=== PATIENT | female | born 1960 | race Caucasian/White ===

== ENCOUNTER → 2017-07-05 | Outpatient (CLI) | payer BC | END | disposition home or self-care (01) | LOC: GMAL 11:00 | PROVIDERS: ATTEND Family Medicine | DX: Z00.00 Encounter for general adult medical examination without abnormal findings (principal) ==

== ENCOUNTER → 2018-05-13 | Outpatient (CLI) | payer BC ==
--- NOTE | 2018-05-14 07:12 | MRI ---
EXAM DESCRIPTION: Lumbar Spine w/o Contrast CLINICAL HISTORY: LOW BACK PN COMPARISON: Previous MRI of the lumbar spine November 09, 2008 TECHNIQUE: MRI of the lumbar spine is performed according to our usual protocol with axial and sagittal multi sequence imaging. FINDINGS: Sagittal T2 images reveal decreased signal intensity consistent with desiccation of the intervertebral discs at levels L2-3 through L4-5. Posterior annular bulges are most prominent at L2-3 and L3-4. Increased signal intensity in the posterior annulus at L4-5 is consistent with a small annular tear. No associated extruded disc fragment at this level. Slight degenerative retrolisthesis of L4 on L5 measures 2 mm. Slight degenerative retrolisthesis of L3 on L4 measures 3 mm. No prevertebral mass or aneurysm. Lower cord and conus appear normal. Tip of the conus is behind T12-L1. Sagittal T1 images reveal benign marrow signal characteristics. Disc degeneration with endplate irregularities noted at L3-4. Modic type I changes are seen around the degenerated L3-4 disc. Modic type II changes are seen around the anterior degenerated L2-3 disc. Normal T1 signal intensity and appearance of the lower cord and conus. Sagittal STIR images show mild increased signal intensity in the inferior endplate of L3 and superior endplate of L4 around the degenerated L3-4 disc. No paraspinous fluid collection or cystic lesion. Axial T1 and T2-weighted images were obtained to evaluate the disc levels. T12-L1: No posterior annular bulge or herniation. No spinal stenosis or neural foraminal narrowing. Facets appear normal. Normal appearance of the lower cord and conus. L1-2: No posterior annular bulge or herniation. No spinal stenosis or neural foraminal narrowing. Facet hypertrophic changes are noted bilaterally. L2-3: Moderate diffuse posterior annular bulge without focal herniation. No spinal stenosis or significant neural foraminal narrowing. Marked facet hypertrophy is seen with thickened ligamentum flavum. No significant subarticular recess narrowing. L3-4: Moderate diffuse posterior annular bulge with mild left paracentral accentuation. No spinal stenosis or significant neural foraminal narrowing marked facet hypertrophy is noted with increased fluid in the facet joints. Ligamentum flavum thickening is present. There is moderate narrowing of the subarticular recesses bilaterally. L4-5: Moderate diffuse posterior annular bulge with midline and right paracentral accentuation. Neural foraminal narrowing is mild bilaterally. No significant spinal stenosis at this level. There is marked facet hypertrophy with ligamentum flavum thickening causing severe narrowing of the right more than left subarticular recesses impinging upon the descending L5 nerve roots. L5-S1: Axial images show mild posterior annular bulge with midline accentuation and no spinal stenosis. No significant neural foraminal narrowing. Facet hypertrophic changes are mild without significant compromise of subarticular recesses or lateral recesses. Upper sacrum appears intact. No retroperitoneal mass or aneurysm. Defect in the posterior left iliac body may be related to previous surgery. A similar abnormality was present in this area on the previous exam. Correlate with surgical history. Compared to previous study November 09, 2008, disc degeneration has progressed at L2-3 through L5-S1 levels. Subarticular recess narrowing as worsened at L3-4 and L4-5 levels. IMPRESSION: No acute-appearing disc herniation or significant spinal stenosis. Disc degeneration has progressed since previous study in October 2008. Electronically signed by: Aurelio Carrizales MD 05/14/2018 7:10 AM CDT
== END ==
LOC: MRI 12:43
PROVIDERS: ATTEND Family Medicine
DX: M54.5 Low back pain (principal)

== ENCOUNTER → 2018-05-25 | Outpatient (CLI) | payer BC ==
--- NOTE | 2018-05-26 17:00 | MAM ---
EXAM DESCRIPTION: 3D Screening BILATERAL : Digital Mammography. CLINICAL HISTORY: 57 years Female SCREEN . No complaints. Remote family history of breast cancer. No personal history. Childbirth. Postmenopausal x16 years. Currently on HRT. Lifetime risk of developing breast cancer (Tyrer-Cuzick model)(%): 6.9 COMPARISON: 2-D digital screening bilateral study 07/14/2016.. TECHNIQUE: Bilateral CC and MLO projection full-field images, Digital tomosynthesis mammographic technique. Bilateral digital 2-D full-field MLO images. CAD not utilized. FINDINGS: The breast parenchymal density pattern is: Scattered areas of fibroglandular density. No skin thickening or nipple retraction. Bilateral axillary lymph nodes. Bilateral solitary microcalcifications. No new focal, stellate mass or density, focal asymmetry , and no suspicious microcalcifications bilaterally. Stable mammograms compared to prior study. Taking into account, differences in mammographic technique. IMPRESSION: Benign exam. BIRAD CATEGORY: 2 BENIGN FINDINGS. RECOMMENDATIONS: FOLLOW UP: Routine digital bilateral screening, one year interval from May 2018. Written communication explaining the IMPRESSION and follow-up, will be mailed to the patient and referring health care provider. According to the [employer], yearly mammograms are recommended starting at age 40 and continuing as long as a woman is in good health. Any breast change noted on a breast self-exam should be reported promptly to the patient's healthcare provider. Breast MRI is recommended for women with an approximately 20-25% or greater lifetime risk of breast cancer, including women with a strong family history of breast or ovarian cancer and women who have been treated for Hodgkin's disease. A negative mammographic report should not delay tissue diagnosis in patients with significant clinical history or physical findings. Extremely dense breast tissue limits the sensitivity of digital mammography. Electronically signed by: Vince Bonds MD 05/26/2018 4:59 PM CDT
== END ==
LOC: MAMMO 14:00
PROVIDERS: ATTEND Obstetrics & Gynecology
DX: Z12.31 Encounter for screening mammogram for malignant neoplasm of breast (principal)

== ENCOUNTER → 2020-05-21 | Outpatient (CLI) | payer OTHER | LOC: GMAL 10:40 | PROVIDERS: ATTEND Family Medicine | DX: Z00.00 Encounter for general adult medical examination without abnormal findings (principal); E53.8 Deficiency of other specified B group vitamins; E55.9 Vitamin D deficiency, unspecified ==

== ENCOUNTER → 2020-07-11 | Outpatient (CLI) | payer OTHER ==
--- NOTE | 2020-07-12 16:12 | MAM ---
EXAM DESCRIPTION: 3D Screening BILATERAL : Digital Mammography. CLINICAL HISTORY: 59 years Female SCREENING . No complaints. Remote family history of breast cancer. Menarche age 9. Childbirth age 22. Menopause age 42. Currently on HRT. Lifetime risk of developing breast cancer (Tyrer-Cuzick model)(%): 7.2. COMPARISON: Bilateral screening digital breast tomosynthesis May 2018. Bilateral screening digital breast 2-D imaging June 2016. TECHNIQUE: Bilateral CC and MLO projection full-field images, digital tomosynthesis mammographic technique. Bilateral digital 2-D full-field MLO images. CAD available for 2-D images. FINDINGS: The breast parenchymal density pattern is: Scattered areas of fibroglandular density. No skin thickening or nipple retraction. Axillary nodes. No new focal, stellate mass or density, focal asymmetry , and no suspicious microcalcifications bilaterally. Stable mammograms compared to prior study. IMPRESSION: Benign exam. BIRAD CATEGORY: 2 BENIGN FINDINGS. RECOMMENDATIONS: FOLLOW UP: Routine digital bilateral mammographic screening, one year interval from June 2020. Written communication explaining the IMPRESSION and follow-up, will be mailed to the patient and referring health care provider. According to the [employer], yearly mammograms are recommended starting at age 40 and continuing as long as a woman is in good health. Any breast change noted on a breast self-exam should be reported promptly to the patient's healthcare provider. Breast MRI is recommended for women with an approximately 20-25% or greater lifetime risk of breast cancer, including women with a strong family history of breast or ovarian cancer and women who have been treated for Hodgkin's disease. A negative mammographic report should not delay tissue diagnosis in patients with significant clinical history or physical findings. Extremely dense breast tissue limits the sensitivity of digital mammography. Electronically signed by: Vince Bonds MD 07/12/2020 4:10 PM [employer]IST
== END ==
LOC: MAMMO 14:00
PROVIDERS: ATTEND Family Medicine
DX: Z12.31 Encounter for screening mammogram for malignant neoplasm of breast (principal)